=== PATIENT | male | born 2000 | race Caucasian/White ===

== ENCOUNTER 2025-02-04 19:01 | Emergency (ER) | payer BC, SELFPAY ==
--- NOTE | 2025-02-04 19:05 | ECG_ITS ---
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
[2025-02-04 19:06] VITALS: BP 180/104; PULSE 97; RESP 18; TEMP 36.8; O2SAT 100; BMI 37.9
--- NOTE | 2025-02-04 19:10 | XRR_ITS ---
PROCEDURE INFORMATION: Exam: XR Chest Exam date and time: 02/04/2025 7:23 PM Age: 25 years old Clinical indication: Pain; Chest pressure; Additional info: Chest pain TECHNIQUE: Imaging protocol: Radiologic exam of the chest. Views: 1 view. COMPARISON: No relevant prior studies available. FINDINGS: Lungs: Unremarkable. No consolidation. Pleural spaces: Unremarkable. No pleural effusion. No pneumothorax. Heart/Mediastinum: Unremarkable. No cardiomegaly. Bones/joints: Unremarkable. XR/XR chest 1V portable [id number] IMPRESSION: No acute findings.
--- NOTE | 2025-02-04 19:38 | ED_ITS ---
HPI - Chest Pain 2 General: Chief Complaint: Chest Pain Stated Complaint: CP left arm tingly History of Present Illness: Patient is a 25-year-old male without medical history that presents to the emergency room with chest pain. He describes this on the central chest with left arm radiation tingling. This occurred 90 minutes prior to arrival. No early family history of OH. Mom might have something wrong with her heart, however no stents, no OH, no stroke. Pertinent events: Prior to arrival, patient was playing pickle ball with his girlfriend, got food to go, was watching a movie, and came to the ED. Associated symptoms: Reports dyspnea and palpitations (occasionally); Deny abdominal pain, fever(s), nausea or vomiting Related Data Previous Rx's ?Medication ?Instructions ?Recorded amoxicillin 500 mg tablet 500 mg PO BID 10 days #20 ta bs 08/15/21 Allergies Allergy/AdvReac Type Severity Reaction Status Date / Time No Known Allergies Allergy Verified 02/04/25 19:09 Review of Systems 2 General: Reports: 10 or more systems reviewed and unremarkable except in HPI and below Const: Denies: fever(s) or chills Eyes: Denies: change in vision or blurry vision ENMT: Denies: post nasal drip or sinus pain Card: Reports: chest pain and palpitations (occasionally) Resp: Reports: dyspnea and non-productive cough GI: Denies: abdominal pain, nausea or vomiting : Denies: flank pain or difficulty urinating Musc: Denies: neck pain or back pain Skin/Breast: Denies: rash or pruritus Neuro: Denies: headache(s) or numbness in extremities Psych: Denies: anxiety or depression [facility] ED 2 PFSH: Social History Smoking and tobacco/nicotine status: never used tobacco/nicotine Physical Exam 2 Const: COMMON NORMALS: no acute distress, average body habitus, patient oriented x3, no limitations, healthy appearing, alert and well nourished HENMT: COMMON NORMALS: normocephalic and atraumatic HEAD & SCALP: n ormocephalic and atraumatic FACE & SINUS: normal facial exam Neck/C-Spine: COMMON NORMALS: full ROM, no lymphadenopathy and supple Lymph: LYMPHATIC: no lymphadenopathy noted Resp: COMMON NORMALS: normal respiratory effort, No retractions and clear to auscultation bilaterally AUSCULTATION: clear to auscultation bilaterally Cardio: HEART SOUNDS: Murmur heart sound present systolic (mid) Location: apex GI: COMMON NORMALS: Normal to inspection, nondistended, normoactive bowel sounds present, Soft to palpation, non-tender and No hepatosplenomegaly present PALPATION: Yes Soft to palpation and Yes No hepatosplenomegaly present : COMMON NORMALS: Yes no CVA tenderness BLADDER/KIDNEY EXAM: Yes no CVA tenderness Back/Pelvis: COMMON NORMALS: no CVA tenderness Extremity: COMMON NORMALS: normal to inspection, full ROM and capillary refill normal Neuro: COMMON NORMALS: patient oriented x3 SENSORIUM/ORIENTATION: Yes alert Course 2 Vital Signs: Vital signs: Vital Signs Temperature 98.2 F 02/04/25 19:06 Pulse Rate 88 02/04/25 20:52 Respiratory Rate 20 H 02/04/25 20:00 Blood Pressure 144/90 02/04/25 20:52 Pulse Oximetry 98 02/04/25 20:52 Oxygen Delivery Me thod Room Air 02/04/25 20:30 MDM - Chest Pain Medical Decision Making Patient is a pleasant 25-year-old gentleman that presented to the ED with central chest pain radiating down his left arm. This appears consistent with esophageal spasms given his stomach bubble, recent running and playing pickle ball. Initial cardiac workup is negative. He is improved after GI cocktail, which is even more reasonable it is associated with esophageal spasm. I have discussed his blood pressure with him that was on the higher side here, however patient states he does have whitecoat syndrome. He will follow a low-sodium diet, and see if he can do this on his own naturally. He does not want to be evaluated for medication at this time. I will defer him to his primary care physician. We also discussed magnesium low dose at night for resting, and his occasional palpitations that I suspect are PACs, that a young gentleman would be more sensitive to I did recommend possible monitoring, however patient did not want to do that at this time, and will try magnesium at night. All of his questions and his girlfriend's questions answered to their satisfaction. Lab Data 02/04/25 19:31 02/04/25 19:31 Laboratory Results WBC 10.07 10^3/uL (3.29-11.43) 02/04/25 19:31 RBC 5.28 10^6/uL (3.85-5.65) 02/04/25 19: Hgb 15.50 g/dL (11.27-16.99) 02/04/25: Hct 46.3 % (37-53) 02/04/25 19: MCV 87.7 fl (82-101) 02/04/25 19: MCH 29.4 pg (27-33) 02/04/25: MCHC 33.5 g/dL (30-55) 02/04/25: RDW 12.6 % (12.1-15.1) 02/04/25: Plt Count 346 10^3/cmm (157-399) 02/04/25: MPV 8.9 fL (7.4-10.4) 02/04/25: Neut % (Auto) 56.9 % 02/04/25: Lymph % (Auto) 33.7 % 02/04/25: Bradford % (Auto) 6.2 % 02/04/25: Eos % (Auto) 2.4 % 02/04/25: Baso % (Auto) 0.6 % 02/04/25: Neut # (Auto) 5.74 10^3/uL (1.8-7.7) 02/04/25: Lymph # (Auto) 3.4 10^3/uL (0.8-4.8) 02/04/25: Bradford # (Auto) 0.6 10^3/uL (0.2-0.9) 02/04/25: Eos # (Auto) 0.2 10^3/uL (0.0-0.8) 02/04/25: Baso # (Auto) 0.1 10^3/uL (0.0-0.1) 02/04/25: Nucleated RBC % (auto) 0 % 02/04/25: Nucleated RBCs # 0.0 /100WBC 02/04/25: Sodium 142 mmol/L (136-145) 02/04/25: Potassium 4.7 mmol/L (3.5-5.1) 10/08/25 19:31 Chloride 103 mmol/L (98-107) 02/04/25 19:31 Carbon Dioxide 25 mmol/L (22-29) 02/04/25 19:31 Anion Gap 18.7 (5-19) 02/04/25 19:31 BUN 10 mg/dL (6-20) 02/04/25 19:31 Creatinine 0.6 mg/dL (0.7-1.2) L 02/04/25 19:31 GFR Calculation 164.2 mL/min (90-130) H 02/04/25 19:31 Glucose 102 mg/dL (65-115) 02/04/25 19:31 Calculated Osmolality 293 mOsm/kg (285-295) 02/04/25 19:31 Calcium 10.0 mg/dL (8.5-10.5) 02/04/25 19:31 Total Bilirubin 0.3 mg/dL (0.15-1.2) 02/04/25 19:31 AST 31 U/L (0-40) 02/04/25 19:31 ALT 60 U/L (0-41) H 02/04/25 19:31 Alkaline Phosphatase 64 U/L (40-130) 02/04/25 19:31 Troponin T Baseline < 6 ng/L (0-15) 02/04/25 19:31 NT-Pro-B Natriuret Pep < 36 pg/mL (0-125) 02/04/25 19:31 Total Protein 7.4 g/dL (6.6-8.7) 02/04/25 19:31 Albumin 4.8 g/dL (3.5-5.2) 02/04/25 19:31 Globulin 2.6 g/dL (1.3-4.6) 02/04/25 19:31 XR interpretation done by ED provider, pending radiology final review EKG Data EKG 1: Interpretation: Normal sinus rhythm, normal axis, no ST segment elevation, LVH Discharge Plan Discharge Patient Disposition: Home Clinical Impression: Atypical chest pain Condition: Stable Prescriptions: No Action amoxicillin 500 mg tablet 500 mg PO BID 10 Days Qty: 20 0RF Discharge Orders: Discharge ED (Routine); Ordered 02/04/25 Ordered By: Kerry Bear Discharge Diet: Low Salt Discharge Activity: Resume usual activity Patient Instructions: DASH Eating Plan (ED), Noncardiac Chest Pain (ED), Patient Portal & Jonathan Instructions Activity Restrictions/Additional Instructions: - Low-salt diet will be the best way to naturally manage your blood pressure - Follow-up with your primary care physician. Take a blood pressure log -Continue to reduce your energy drink intake/caffeine - Return to ED for further issues with chest pain - On this workup, no acute issues with ischemia/or otherwise called blockage were found, this does not mean you do not have blockage, it means you do not have an acute event associated with acute blockage. 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
[2025-02-04 19:41] VITALS: BP 168/100; PULSE 101; RESP 20; O2SAT 97
[2025-02-04 19:52] LABS: Hematocrit 46.3 % (37-53); Hemoglobin 15.50 g/dL (11.27-16.99); Mean Corpuscular HGB Conc 33.5 g/dL (30-55); Mean Corpuscular Hemoglobin 29.4 pg (27-33); Mean Corpuscular Volume 87.7 fl (82-101); Nucleated Red Blood Cells % 0 %; Platelet Count 346 10^3/cmm (157-399); Red Blood Count 5.28 10^6/uL (3.85-5.65); White Blood Count 10.07 10^3/uL (3.29-11.43)
[2025-02-04] MEDS: lidocaine 2% viscous 15 ML, aluminum-mag hydrox-simethicon 30 ML, sucralfate oral liq 1 GM PO (19:58)
[2025-02-04 20:00] VITALS: BP 157/99; PULSE 91; RESP 20; O2SAT 95
[2025-02-04 20:28] LABS: Troponin(5th) Baseline < 6 ng/L (0-15)
[2025-02-04 20:29] LABS: Alanine Aminotransferase 60 U/L (0-41); Albumin Level 4.8 g/dL (3.5-5.2); Alkaline Phosphatase 64 U/L (40-130); Blood Urea Nitrogen 10 mg/dL (6-20); Calcium 10.0 mg/dL (8.5-10.5); Carbon Dioxide 25 mmol/L (22-29); Chloride 103 mmol/L (98-107); Creatinine Clr Calc Pharmacy 319.9651; Globulin 2.6 g/dL (1.3-4.6); Glucose 102 mg/dL (65-115); Osmolality Calculated 293 mOsm/kg (285-295); Sodium 142 mmol/L (136-145); Total Protein 7.4 g/dL (6.6-8.7)
[2025-02-04 20:30] VITALS: BP 144/90; PULSE 91; O2SAT 97
[2025-02-04 20:30] LABS: Anion Gap 18.7 (5-19); Aspartate Amino Transferase 31 U/L (0-40); Potassium 4.7 mmol/L (3.5-5.1)
[2025-02-04 20:38] LABS: NT Pro B Type Natriuretic Pept < 36 pg/mL (0-125)
[2025-02-04 20:52] VITALS: BP 144/90; PULSE 88; O2SAT 98
== END 2025-02-04 20:53 | disposition home or self-care (01) ==
PROVIDERS: Emergency Medicine; Emergency Provider Physician Assistant
DX: R07.89 Other chest pain (principal)
CPT/HCPCS: 36415; 71045; 80053; 83880; 84484; 85025; 93005; 99285; J9999